=== PATIENT | female | born 1970 | race Caucasian/White ===

== ENCOUNTER 2017-12-16 18:58 | Emergency (ER) | payer OTHER ==
[~2017-12-16] VITALS: Ht 172.7 cm; Wt 64.9 kg
[~2017-12-16 18:58] MED LIST: INDERAL LA80 MG
== END 2017-12-16 23:57 | disposition home or self-care (01) ==
LOC: ER 18:58
DX: B34.9 Viral infection, unspecified (principal); K29.70 Gastritis, unspecified, without bleeding